=== PATIENT | female | born 1950 | race African-American/Black ===

== ENCOUNTER 2023-10-18 02:08 | Emergency (ER) | payer OTHER, BC ==
[~2023-10-18] VITALS: Ht 170.2 cm; Wt 68.0 kg
[2023-10-18 02:25] VITALS: BP 145/87; PULSE 72; RESP 17; TEMP 97.8; O2SAT 100
[2023-10-18 03:34] LABS: APPEARANCE,URINE CLOUDY (CLEAR); BILIRUBIN,URINE NEGATIVE (NEGATIVE); BLOOD, URINE 3+ (NEGATIVE); COLOR,URINE BROWN (YELLOW); LEUKOCYTE ESTERASE ,URINE TRACE (NEGATIVE); NITRITE, URINE POSITIVE (NEGATIVE); PROTEIN,URINE 2+ (NEGATIVE); UGLUCOSE 3+ (NEGATIVE); UROBILINOGEN,URINE 0.2 EU/dL (0.2 - 1)
[2023-10-18 03:54] LABS: BACTERIA,URINE 2+ /HPF (None Seen); MUCUS,URINE 1+ /LPF (None Seen); RBC,URINE TOO NUMEROUS TO COUN /HPF (0-5); SQUAMOUS EPITHELIAL CELL,UR 4-10 (MOD) /LPF (0-3 (FEW)); TRICHOMONAS,URINE None Seen /HPF (None Seen); WBC,URINE 16-25 (MOD) /HPF (0-5); YEAST,URINE Few /HPF (None Seen)
[2023-10-18] MEDS ORDERED: cefTRIAXone 1,000 MG VIAL ONE (04:16)
[2023-10-18] MEDS ORDERED: LIDOCAINE MPF 1% 5 ML ONE (04:16)
[2023-10-18] MEDS: cefTRIAXone 1,000 MG in LIDOCAINE MPF 1% 2.1 ML IM ONE (04:25)
[2023-10-18] MEDS ORDERED: CIPR500T4 PO (04:29)
[2023-10-18 04:34] VITALS: BP 145/87; PULSE 72; RESP 17; TEMP 97.8; O2SAT 100
== END 2023-10-18 04:34 | disposition home or self-care (01) ==
LOC: MED 02:08
DX: N39.0 Urinary tract infection, site not specified (principal); E11.9 Type 2 diabetes mellitus without complications; Z79.2 Long term (current) use of antibiotics
CPT/HCPCS: 81001; 87086; 96372; 99283; J0696; J2001